=== PATIENT | female | born 1970 | race Caucasian/White ===

== ENCOUNTER 2022-02-19 11:57 | Emergency (ER) | payer OTHER, MEDICAID ==
[~2022-02-19] VITALS: Ht 162.6 cm; Wt 48.1 kg
[~2022-02-19 11:57] MED LIST: CIPR-260 PO; DICY20TA55 PO; GABA-531 PO; HYDR-3927 PO; METH-634 GT; MORP1DIS IJ; PROC10TA13 PO; SUCR1ORA2 PO; TAMS-11 PO; ZOLP5TAB2 PO
[2022-02-19 12:09] VITALS: BP_SYST 98
--- NOTE | 2022-02-19 12:15 | NUR ---
Pt c/o epigstric pain x3 months non-radiating. States she has gone to different hospitals but nothing has been found she states. Rates pain 05/02. Pt is A&Ox4. Skin intact. VSS. Coming from home accompanied by family member. Pt in wheelchair unable to ambulate. Allergic to Reglan. Has hx of HTN, Hyperlipidemia and C4 spinal cord injury. No chest pain and no sob. Denies n/v.
--- NOTE | 2022-02-19 12:15 | NUR ---
Triaged pt and pt placed in waiting room until a bed becomes available. VSS. A&Ox4. Dr. Harris made aware.
--- NOTE | 2022-02-19 13:50 | NUR ---
DR MAYO TO WAITING ROOM TO EVALUATE PT.
--- NOTE | 2022-02-19 15:01 | NUR ---
DR HAILE OUT TO SEE PT IN WAITING ROOM, UNABLE TO FIND PT. PT ELOPED
[2022-02-19 16:33] LABS: BASOPHILS % (AUTO) 0.3 % (0.0-2.0); EOSINOPHILS # (AUTO) 0.1 K/uL (0.0-0.4); EOSINOPHILS % (AUTO) 1.1 % (0.0-4.0); HEMATOCRIT 37.6 % (36-48); HEMOGLOBIN 12.6 g/dL (12.0-16.0); LYMPHOCYTES # (AUTO) 1.6 K/uL (1.0-5.5); LYMPHOCYTES % (AUTO) 25.5 % (20.5-51.5); MEAN CORPUSCULAR HEMOGLOBIN 29 pg (27-31); MEAN CORPUSCULAR HGB CONC 34 % (32-36); MEAN CORPUSCULAR VOLUME 87 fL (79.0-98.0); MONOCYTES # (AUTO) 0.3 K/uL (0.0-1.0); MONOCYTES % (AUTO) 5.4 % (1.7-9.3); NEUTROPHILS # (AUTO) 4.2 K/uL (1.8-7.7); NEUTROPHILS % (AUTO) 67.7 % (40.0-70.0); PLATELET COUNT (AUTO) 239 K/uL (130-430); RED BLOOD CELL COUNT(AUTO) 4.35 MIL/uL (4.2-6.2); RED CELL DISTRIBUTION WIDTH 14.2 % (9.0-15.0); WHITE BLOOD COUNT (AUTO) 6.2 K/uL (4.8-10.8)
[2022-02-19 16:57] LABS: CALCIUM 8.1 mg/dL (8.4-11.0); CREATININE 0.67 mg/dL (0.55-1.30)
[2022-02-19 17:03] LABS: ALBUMIN 3.2 g/dL (3.4-4.8); TOTAL BILIRUBIN 0.4 mg/dL (0.0-1.0)
--- NOTE | 2022-02-19 17:48 | NUR ---
DR HAILE OUT TO SEE PT AND UNABLE TO FIND PT IN WAITING ROOM. PT PAOLA Addendum: 02/19/22 at 1748 by DOLLY NOT JAMIE GUEVARA
== END 2022-02-19 18:51 | disposition left against medical advice (07) ==
LOC: SED 11:57
DX: K59.00 Constipation, unspecified (principal); R10.11 Right upper quadrant pain; R11.2 Nausea with vomiting, unspecified; K29.70 Gastritis, unspecified, without bleeding; Z79.899 Other long term (current) drug therapy
CPT/HCPCS: 36415; 76376; 80053; 83690; 85025; 99284